=== PATIENT | female | born 1945 | race Two or more races ===

== ENCOUNTER 2023-04-09 13:17 | Emergency (ER) | payer OTHER ==
[~2023-04-09] VITALS: Ht 154.9 cm; Wt 73.0 kg
[2023-04-09] MEDS ORDERED: LEVOTHYROXINE25 MCG PO (13:30)
[2023-04-09] MEDS ORDERED: DEPAKOTE ER500 MG PO (13:30)
[2023-04-09] MEDS ORDERED: ADULT LOW DOSE81 M1 PO (13:31)
[2023-04-09] MEDS ORDERED: WELLBUTRIN SR100 MG PO (13:31)
[2023-04-09] MEDS ORDERED: LIPITOR40 M1 PO (13:31)
[2023-04-09] MEDS ORDERED: NAMENDA5 MG (13:31)
== END 2023-04-09 16:57 | disposition home or self-care (01) ==
LOC: ER 13:17
DX: M25.552 Pain in left hip (principal); M54.50 Low back pain, unspecified; Z91.013 Allergy to seafood